=== PATIENT | male | born 1980 | race African-American/Black ===

== ENCOUNTER 2019-04-01 16:16 | Emergency (ER) | payer SELFPAY ==
--- NOTE | 2019-04-01 16:46 | ER Document Report ---
ED Medical Screen (RME) - General Chief Complaint: Cough Stated Complaint: SHORTNESS OF BREATH Time Seen by Provider: 04/01/19 16:39 Primary Care Provider: KYAW POLLOCK MD [Primary Care Provider] - Follow up as needed TRAVEL OUTSIDE OF THE [place] IN LAST 30 DAYS: No - HPI Notes: 04/01/19 16:44 Patient is a 39-year-old male no significant past medical history who presents complaining of shortness of breath, dyspnea on exertion, chest pain when he lays supine over the past 1 to 2 months. Patient states that he has had a dry cough for the past 4 months. Patient is also complaining of bilateral posterior calf pain over the last couple weeks. Denies drug allergies. He is not on any blood thinning medications. Denies any prolonged immobilization, distance travel, recent surgery/trauma, personal cancer history, hormone use, smoking, or previous DVT/PE. Denies HALL, fever, neck pain, URI, n/v/d, Abd pain, dysuria, back pain, or rash. I have treated and performed a rapid initial assessment of this patient. A comprehensive ED assessment and evaluation of the patient, analysis of test results and completion of medical decision making process will be conducted by additional ED providers. PHYSICAL EXAMINATION: GENERAL: Well-appearing, well-nourished and in no acute distress. A&Ox4. Answers questions appropriately. LUNGS: Breath sounds clear to auscultation bilaterally and equal. No wheezes rales or rhonchi. HEART: Regular rate and rhythm without murmurs, rubs, gallops. Extremities: No cyanosis, clubbing, or edema b/l. + tenderness popliteal areas b/l NEUROLOGICAL: Normal speech, normal gait. PSYCH: Normal mood, normal affect. - Related Data Allergies/Adverse Reactions: No Known Allergies Allergy (Unverified 04/01/19 16:21) Past Medical History - Immunizations Hx Diphtheria, Pertussis, Tetanus Vaccination: Yes Physical Exam - Vital signs Vitals: Temp Pulse Resp BP Pulse Ox 98.9 F 85 16 148/95 H 98 04/01/19 16:21 04/01/19 16:21 04/01/19 16:21 04/01/19 16:21 04/01/19 16:21 Course - Vital Signs Vital signs: Temp Pulse Resp BP Pulse Ox 98.9 F 85 16 148/95 H 98 04/01/19 16:21 04/01/19 16:21 04/01/19 16:21 04/01/19 16:21 04/01/19 16:21 Doctor's Discharge - Discharge Referrals: KYAW POLLOCK MD [Primary Care Provider] - Follow up as needed
--- NOTE | 2019-04-01 17:11 | RADIOLOGY REPORT (SQ) ---
EXAM DESCRIPTION: CHEST 2 VIEWS COMPLETED DATE/TIME: 04/01/2019 4:58 pm REASON FOR STUDY: cough COMPARISON: None. EXAM PARAMETERS: NUMBER OF VIEWS: two views TECHNIQUE: Digital Frontal and Lateral radiographic views of the chest acquired. RADIATION DOSE: NA LIMITATIONS: none FINDINGS: LUNGS AND PLEURA: No opacities, masses or pneumothorax. No pleural effusion. MEDIASTINUM AND HILAR STRUCTURES: Mild prominence in the right paratracheal region. HEART AND VASCULAR STRUCTURES: Heart normal size. No evidence for failure. BONES: Post surgical changes left glenohumeral joint. HARDWARE: None in the chest. OTHER: No other significant finding. IMPRESSION: 1. No acute pulmonary consolidation. 2. Mild prominence right paratracheal region. Further evaluation with CT chest with IV contrast sug gested. TECHNICAL DOCUMENTATION: JOB ID: [id number] [employer]- All Rights Reserved Reading location - IP/workstation name: [email or web address]
[2019-04-01 17:53] LABS: ABSOLUTE BASOPHILS # (AUTO) 0.1 10^3/uL (0.0-0.2); ABSOLUTE EOSINOPHILS # (AUTO) 0.1 10^3/uL (0.0-0.6); ABSOLUTE LYMPHOCYTES (AUTO) 1.7 10^3/uL (0.5-4.7); ABSOLUTE MONOCYTES (AUTO) 0.5 10^3/uL (0.1-1.4); ABSOLUTE NEUT (AUTO) 2.5 10^3/uL (1.7-8.2); BASOPHILS % (AUTO) 1.4 % (0-2); EOSINOPHILS % (AUTO) 2.7 % (0-6); HEMATOCRIT 45.4 % (37.9-51.0); HEMOGLOBIN 14.9 g/dL (13.5-17.0); MEAN CORPUSCULAR HEMOGLOBIN 29.3 pg (27.0-33.4); MEAN CORPUSCULAR HGB CONC 32.8 g/dL (32.0-36.0); MEAN CORPUSCULAR VOLUME 90 fl (80-97); PLATELET COUNT 266 10^3/uL (150-450); RED BLOOD COUNT 5.07 10^6/uL (4.35-5.55); RED CELL DISTRIBUTION WIDTH 13.2 % (11.5-14.0); SEGMENTED NEUTROPHILS % (AUTO) 50.9 % (42-78); TOTAL CELLS COUNTED % (AUTO) 100 %; WHITE BLOOD COUNT 4.9 10^3/uL (4.0-10.5)
[2019-04-01 18:08] LABS: ALBUMIN 4.9 g/dL (3.5-5.0); ALKALINE PHOSPHATASE 104 U/L (38-126); ANION GAP 11 (5-19); ASPARTATE AMINO TRANSFERASE 49 U/L (17-59); BILIRUBIN,DIRECT 0.5 mg/dL (0.0-0.4); BILIRUBIN,TOTAL 0.6 mg/dL (0.2-1.3); BLOOD UREA NITROGEN 16 mg/dL (7-20); CARBON DIOXIDE 29 mmol/L (22-30); CHLORIDE 97 mmol/L (98-107); GLUCOSE 94 mg/dL (75-110); POTASSIUM 4.9 mmol/L (3.6-5.0); TOTAL PROTEIN 8.6 g/dL (6.3-8.2)
[2019-04-01 18:20] LABS: NT PRO BNP 36 pg/mL (<125)
[2019-04-01 18:25] LABS: TROPONIN I < 0.012 ng/mL
--- NOTE | 2019-04-01 18:35 | EKG REPORT ---
SEVERITY:- BORDERLINE ECG - SINUS RHYTHM PROBABLE LEFT ATRIAL ABNORMALITY : Confirmed by: Asa Tesfaye MD 01-Apr-2019 18:34:37
--- NOTE | 2019-04-01 18:44 | ER Document Report ---
ED General - General Chief Complaint: Cough Stated Complaint: SHORTNESS OF BREATH Time Seen by Provider: 04/01/19 16:39 Primary Care Provider: KYAW POLLOCK MD [ACTIVE STAFF] - Follow up as needed Notes: 39-year-old healthy male presents the emergency department with shortness of breath, dyspnea on exertion, chest pain when laying supine x1 month that is gotten progressively worse over the last 2 weeks. Patient has had a dry cough for the past 4 months leading up to this. Patient is not a smoker. Also, patient complains of bilateral posterior calf pain is been going on for the last couple weeks. Not on anticoagulation, no prolonged immobilization, distance travel, recent surgery or trauma, personal cancer history, hormone use, or previous DVT. Patient denies any other symptoms, no recent illnesses, no fevers, no nausea/vomiting/diarrhea. No other complaints TRAVEL OUTSIDE OF THE [place] IN LAST 30 DAYS: No - Related Data Allergies/Adverse Reactions: No Known Allergies Allergy (Unverified 04/01/19 16:21) Past Medical History - Social History Smoking Status: Unknown if Ever Smoked Frequency of alcohol use: None Drug Abuse: None Family History: None Patient has suicidal ideation: No Patient has homicidal ideation: No Renal/ Medical History: Denies: Hx Peritoneal Dialysis - Immunizations Hx Diphtheria, Pertussis, Tetanus Vaccination: Yes Hx Pneumococcal Vaccination: 08/27/00 Review of Systems - Review of Systems Constitutional: See HPI EENT: No symptoms reported Cardiovascular: See HPI Respiratory: See HPI Gastrointestinal: See HPI Genitourinary: No symptoms reported Male Genitourinary: No symptoms reported Musculoskeletal: See HPI Skin: No symptoms reported Hematologic/Lymphatic: No symptoms reported Neurological/Psychological: No symptoms reported Physical Exam - Vital signs Vitals: Temp Pulse Resp BP Pulse Ox 98.9 F 85 16 148/95 H 98 04/01/19 16:21 04/01/19 16:21 04/01/19 16:21 04/01/19 16:21 04/01/19 16:21 - Notes Notes: PHYSICAL EXAMINATION: Reviewed vital signs and charting by RN GENERAL: Alert, interacts well. No acute distress. HEAD: Normocephalic, atraumatic. EYES: Pupils equal and round. Extraocular movements intact. ENT: Oral mucosa moist, tongue midline. NECK: Full range of motion. Trachea midline. LUNGS: Clear to auscultation bilaterally, no wheezes, rales, or rhonchi. No respiratory distress. HEART: Regular rate and rhythm. No murmur ABDOMEN: soft, non-tender. No distention. Bowel sounds present EXTREMITIES: Moves all 4 extremities spontaneously. No edema, No cyanosis. PSYCH: Normal affect, normal mood. SKIN: Warm, dry, normal turgor. No rashes or lesions noted. Course - Re-evaluation Re-evalutation: 04/01/19 18:43 Patient is well-appearing in no acute distress. Chest x-ray showed concern for some type of paratracheal prominence a chest CT with IV contrast has been ordered area also bilateral lower extremity Dopplers were ordered in triage. 04/01/19 20:50 Bilateral lower extremity Dopplers were unofficially read negative per the technologist. Chest CT with contrast done and is concerning for potential abnormality as there was a 23.5 mm mass with associated hilar lymphadenopathy. Upon further questioning patient's cousin is going to chemotherapy currently for lymphoma. Patient's lab work all within normal limits, no abnormalities . Plan at this time is to refer patient to pulmonary and hematology/oncology. Patient is currently stable for discharge. - Vital Signs Vital signs: Temp Pulse Resp BP Pulse Ox 98.9 F 85 21 H 146/107 H 99 04/01/19 16:21 04/01/19 16:21 04/01/19 20:00 04/01/19 20:00 04/01/19 20:01 - Laboratory Result Diagrams: 04/01/19 17:05 04/01/19 17:05 Laboratory results interpreted by me: 04/01/19 17:05 Chloride 97 L Direct Bilirubin 0.5 H Total Protein 8.6 H Discharge - Discharge Clinical Impression: Hilar adenopathy, Mass in chest Condition: Stable Disposition: HOME, SELF-CARE Additional Instructions: You were seen in the emergency department this evening for shortness of breath and dyspnea on exertion. After doing a CT of your chest it was discovered that there is some type of the nodule or mass that was discovered. You also have something called hilar adenopathy which is inflammation of the lymph nodes in your chest. Unclear if this is related to that nodule/mass or why you are having the inflammation. You are being referred to the net[employer] administrator who is on- call today and to our lumber puller/oncologist. Please call them first thing in the morning for further work-up. If you develop severe shortness of breath, get tightness in your throat and feel like your airway is closing off, get significant chest pain that is constant, or you have any other concerning symptoms please immediately return to the emergency department. Referrals: FAITH RAMOS MD [ACTIVE STAFF] - Follow up as needed KYAW POLLOCK MD [ACTIVE STAFF] - Follow up tomorrow BISHOP MORAES MD [ACTIVE STAFF] - Follow up tomorrow
--- NOTE | 2019-04-01 19:31 | RADIOLOGY REPORT (SQ) ---
EXAM DESCRIPTION: CT CHEST WITH COMPLETED DATE/TIME: 04/01/2019 7:11 pm REASON FOR STUDY: paratracheal prominence on CXR COMPARISON: None. TECHNIQUE: CT scan of the chest performed using helical scanning technique with dynamic intravenous contrast injection. Images reviewed with lung, soft tissue and bone windows. Reconstructed coronal and sagittal MPR and MIP images reviewed. All images stored on PACS. All CT scanners at this facility use dose modulation, iterative reconstruction, and/or weight based d osing when appropriate to reduce radiation dose to as low as reasonably achievable (ALARA). [facility]: Dose Right [facility]: CareDose [facility]: Dose Right [facility]: Teradose 4D [facility]: [employer] CONTRAST TYPE AND DOSE: contrast/concentration: Isovue 350.00 mg/ml; Total Contrast Delivered: 80.0 ml; Total Saline Delivered: 55.0 ml RENAL FUNCTION: BUN 16 creatinine 1.16 RADIATION DOSE: CT Rad equipment meets quality standard of care and radiation dose reduction techniq ues were employed. CTDIvol: 8.1 mGy. DLP: 331 mGy-cm. . LIMITATIONS: None. FINDINGS: LUNGS AND PLEURA: No opacities, nodules, masses. No pneumothorax. No effusions. HILAR AND MEDIASTINAL STRUCTURES: Mediastinal adenopathy. There is a node or mass in the pretracheal region on image 18 that measures 23.5 mm. Hilar adenopathy is present. subcarinal nodes are seen. HEART AND VASCULAR STRUCTURES: No aneurysm or dissection. No central pulmonary emboli. No pericardi al effusion. HARDWARE: None in the chest. UPPER ABDOMEN: The spleen is normal. There is no retroperitoneal adenopathy. THYROID AND OTHER SOFT TISSUES: No masses. No adenopathy. BONES: No significant finding. OTHER: No other significant finding. IMPRESSION: Mediastinal and hilar adenopathy. Concerning for lymphoma. The spleen is normal. No a denopathy is seen in the upper abdomen. TECHNICAL DOCUMENTATION: JOB ID: [id number] Quality ID # [id number]: Final reports with documentation of one or more dose reduction techniques (e.g., Au tomated exposure control, adjustment of the mA and/or kV according to patient size, use of iterative reconstruction technique) 2010 [employer]- All Rights Reserved Reading location - IP/workstation name: [email or web address]
[2019-04-01 20:44] VITALS: BP 146/107
--- NOTE | 2019-04-01 22:39 | RADIOLOGY REPORT (SQ) ---
US LOWER EXTREMITY VEINS EXAM DATE: 04/01/2019 4:44 PM CDT HISTORY: Leg pain and swelling. COMPARISON: None. TECHNIQUE: Vargas-scale, color Doppler and spectral Doppler images of the bilateral lower extremity veins were obtained. FINDINGS: RIGHT: The right common femoral, superficial femoral and popliteal veins are patent and compressible. Normal augmentation and color Doppler blood flow in the aforementioned veins. The visualized calf veins are also patent. LEFT: The left common femoral, superficial femoral and popliteal veins are patent and compressible. Normal augmentation and color Doppler blood flow in the aforementioned veins. The visualized calf veins are also patent. IMPRESSION: No evidence of deep venous thrombosis in the bilateral lower extremities.
--- NOTE | 2019-04-02 09:03 | EKG REPORT ---
SEVERITY:- BORDERLINE ECG - SINUS RHYTHM PROBABLE LEFT ATRIAL ABNORMALITY : Confirmed on behalf of: Asa Tesfaye MD 02-Apr-2019 09:02:26
== END 2019-04-01 21:11 | disposition home or self-care (01) ==
LOC: ER 16:16
DX: R59.0 Localized enlarged lymph nodes (principal); R22.2 Localized swelling, mass and lump, trunk; R05 Cough; R06.02 Shortness of breath; R06.00 Dyspnea, unspecified; M79.604 Pain in right leg; M79.605 Pain in left leg
CPT/HCPCS: 36415; 71046; 71260; 80053; 83880; 84484; 85025; 93005; 93010; 93970; 99285

== ENCOUNTER 2019-06-03 13:23 | Emergency (ER) | payer OTHER ==
--- NOTE | 2019-06-03 14:01 | ER Document Report ---
ED Medical Screen (RME) - General Chief Complaint: Productive Cough Stated Complaint: SPITTING BLOOD Time Seen by Provider: 06/03/19 13:49 Notes: Patient is a 39-year-old male who presents to the emergency department with a chief complaint of hemoptysis. He started coughing up blood this morning. He has been coughing for the past few days. Denies any fever. He was seen here in the emergency department in March and had a CT done that was concerning for lymphoma. They did a biopsy through Dr. Katz and was sent out to [facility]. [facility] and then referred him back to Dr. Katz. Exam: Clear breath sounds noted bilaterally. I have greeted and performed a rapid initial assessment of this patient. A comprehensive ED assessment and evaluation of the patient, analysis of test results and completion of medical decision making process will be conducted by an additional ED providers. TRAVEL OUTSIDE OF THE [place] IN LAST 30 DAYS: No - Related Data Allergies/Adverse Reactions: No Known Allergies Allergy (Verified 06/03/19 13:46) Past Medical History Renal/ Medical History: Denies: Hx Peritoneal Dialysis - Immunizations Hx Diphtheria, Pertussis, Tetanus Vaccination: Yes Physical Exam - Vital signs Vitals: Temp Pulse Resp BP Pulse Ox 99.1 F 103 H 16 134/77 H 98 06/03/19 13:28 06/03/19 13:28 06/03/19 13:28 06/03/19 13:28 06/03/19 13:28 Course - Vital Signs Vital signs: Temp Pulse Resp BP Pulse Ox 99.1 F 103 H 16 134/77 H 98 06/03/19 13:28 06/03/19 13:28 06/03/19 13:28 06/03/19 13:28 06/03/19 13:28
[2019-06-03 14:27] LABS: ABSOLUTE BASOPHILS # (AUTO) 0.1 10^3/uL (0.0-0.2); ABSOLUTE EOSINOPHILS # (AUTO) 0.2 10^3/uL (0.0-0.6); ABSOLUTE LYMPHOCYTES (AUTO) 1.1 10^3/uL (0.5-4.7); ABSOLUTE MONOCYTES (AUTO) 0.5 10^3/uL (0.1-1.4); ABSOLUTE NEUT (AUTO) 3.5 10^3/uL (1.7-8.2); BASOPHILS % (AUTO) 1.1 % (0-2); EOSINOPHILS % (AUTO) 3.4 % (0-6); HEMATOCRIT 42.5 % (37.9-51.0); HEMOGLOBIN 13.8 g/dL (13.5-17.0); LYMPHOCYTES % (AUTO) 19.7 % (13-45); MEAN CORPUSCULAR HEMOGLOBIN 28.4 pg (27.0-33.4); MEAN CORPUSCULAR HGB CONC 32.6 g/dL (32.0-36.0); MEAN CORPUSCULAR VOLUME 87 fl (80-97); PLATELET COUNT 348 10^3/uL (150-450); RED BLOOD COUNT 4.87 10^6/uL (4.35-5.55); RED CELL DISTRIBUTION WIDTH 13.7 % (11.5-14.0); SEGMENTED NEUTROPHILS % (AUTO) 65.8 % (42-78); TOTAL CELLS COUNTED % (AUTO) 100 %; WHITE BLOOD COUNT 5.4 10^3/uL (4.0-10.5)
--- NOTE | 2019-06-03 14:39 | RADIOLOGY REPORT (SQ) ---
EXAM DESCRIPTION: CHEST 2 VIEWS COMPLETED DATE/TIME: 06/03/2019 2:20 pm REASON FOR STUDY: cough COMPARISON: PA and lateral views of the chest from 04/01/2019. EXAM PARAMETERS: NUMBER OF VIEWS: two views TECHNIQUE: Digital Frontal and Lateral radiographic views of the chest acquired. RADIATION DOSE: NA LIMITATIONS: none FINDINGS: LUNGS AND PLEURA: No consolidation, pleural effusion or pneumothorax. MEDIASTINUM AND HILAR STRUCTURES: No mediastinal or hilar contour abnormality. HEART AND VASCULAR STRUCTURES: The cardiac silhouette and pulmonary vasculature are within normal poole its. BONES: No acute findings. HARDWARE: Findings of prior rotator cuff repair on the left. OTHER: No other finding. IMPRESSION: No acute cardiopulmonary process. TECHNICAL DOCUMENTATION: JOB ID: [id number] [employer]- All Rights Reserved Reading location - IP/workstation name: [email or web address]
[2019-06-03 14:50] LABS: ALBUMIN 4.2 g/dL (3.5-5.0); ALKALINE PHOSPHATASE 265 U/L (38-126); ANION GAP 10 (5-19); ASPARTATE AMINO TRANSFERASE 53 U/L (17-59); BILIRUBIN,DIRECT 0.1 mg/dL (0.0-0.4); BILIRUBIN,TOTAL 0.4 mg/dL (0.2-1.3); BLOOD UREA NITROGEN 11 mg/dL (7-20); CALCIUM 9.7 mg/dL (8.4-10.2); CARBON DIOXIDE 29 mmol/L (22-30); CHLORIDE 99 mmol/L (98-107); GLUCOSE 105 mg/dL (75-110); POTASSIUM 4.7 mmol/L (3.6-5.0); TOTAL PROTEIN 8.3 g/dL (6.3-8.2)
[2019-06-03 16:04] VITALS: BP 134/75
--- NOTE | 2019-06-03 16:22 | ER Document Report ---
ED Respiratory Problem - General Chief Complaint: Cough Stated Complaint: SPITTING BLOOD Time Seen by Provider: 06/03/19 13:49 Primary Care Provider: KYAW POLLOCK MD [Primary Care Provider] - Follow up tomorrow Mode of Arrival: Ambulatory Information source: Patient Notes: 39-year-old male presented to ED for complaint of spitting up some blood when he coughed this morning. He states he has been coughing for the past several days and had some blood this morning. He denies any fever. He states he was seen in March and had a CT and was concerning for lymphoma. He states he has had a biopsy since then with Dr. Katz and was told that the biopsy was negative. TRAVEL OUTSIDE OF THE [place] IN LAST 30 DAYS: No - HPI Patient complains to provider of: Cough - Hemoptysis Onset: This morning Duration: Gone now Initiating Event: URI Quality of pain: No pain Severity: None Pain Level: Denies Cough: Productive Sputum amount: Small Sputum color: [place] tinged Associated symptoms: Congestion, Cough, PND, Runny nose Similar symptoms previously: Yes Recently seen / treated by doctor: No - Related Data Allergies/Adverse Reactions: No Known Allergies Allergy (Verified 06/03/19 13:46) Past Medical History - General Information source: Patient - Social History Smoking Status: Never Smoker Frequency of alcohol use: Rare Drug Abuse: None Lives with: Family Family History: None Patient has suicidal ideation: No Patient has homicidal ideation: No - Past Medical History Cardiac Medical History: Reports: None Pulmonary Medical History: Reports: None EENT Medical History: Reports: None Neurological Medical History: Reports: None Endocrine Medical History: Reports: None Renal/ Medical History: Reports: None Malignancy Medical History: Reports None GI Medical History: Reports: None Musculoskeletal Medical History: Reports Hx Musculoskeletal Trauma Skin Medical History: Reports None Psychiatric Medical History: Reports: None Traumatic Medical History: Reports: None Infectious Medical History: Reports: None Past Surgical History: Reports: Other - Biopsy of the trach - Immunizations Hx Diphtheria, Pertussis, Tetanus Vaccination: Yes Hx Pneumococcal Vaccination: 08/27/00 Review of Systems - Review of Systems Constitutional: No symptoms reported EENT: No symptoms reported Cardiovascular: No symptoms reported Respiratory: Cough, Hemoptysis - Very minimal Gastrointestinal: No symptoms reported Genitourinary: No symptoms reported Male Genitourinary: No symptoms reported Musculoskeletal: No symptoms reported Skin: No symptoms reported Hematologic/Lymphatic: No symptoms reported Neurological/Psychological: No symptoms reported -: Yes All other systems reviewed and negative Physical Exam - Vital signs Vitals: Temp Pulse Resp BP Pulse Ox 99.1 F 103 H 16 134/77 H 98 06/03/19 13:28 06/03/19 13:28 06/03/19 13:28 06/03/19 13:28 06/03/19 13:28 Interpretation: Normal - General General appearance: Appears well, Alert - HEENT Head: Normocephalic, Atraumatic Eyes: Normal Pupils: PERRL - Respiratory Respiratory status: No respiratory distress Chest status: Nontender Breath sounds: Normal Chest palpation: Normal - Cardiovascular Rhythm: Regular Heart sounds: Normal auscultation Murmur: No - Abdominal Inspection: Normal Distension: No distension Bowel sounds: Normal Tenderness: Nontender Organomegaly: No organomegaly - Back Back: Normal, Nontender - Extremities General upper extremity: Normal inspection, Nontender, Normal color, Normal ROM, Normal temperature General lower extremity: Normal inspection, Nontender, Normal color, Normal ROM, Normal temperature, Normal weight bearing. No: Natasha's sign - Neurological Neuro grossly intact: Yes Cognition: Normal Orientation: AAOx4 [place] Coma Scale Eye Opening: Spontaneous [place] Coma Scale Verbal: Oriented [place] Coma Scale Motor: Obeys Commands [place] Coma Scale Total: 15 Speech: Normal Motor strength normal: LUE, RUE, LLE, RLE Sensory: Normal - Psychological Associated symptoms: Normal affect, Normal mood - Skin Skin Temperature: Warm Skin Moisture: Dry Skin Color: Normal Course - Re-evaluation Re-evalutation: 06/04/19 02:38 Patient's blood work was negative except for a positive alkaline phosphatase. Patient was instructed to please follow-up with Dr. Katz concerning this elevated alkaline phosphatase. Patient verbalized understanding and agreeable with plan before he was discharged. - Vital Signs Vital signs: Temp Pulse Resp BP Pulse Ox 98.7 F 86 18 134/75 H 100 06/03/19 15:57 06/03/19 15:57 06/03/19 15:57 06/03/19 15:57 06/03/19 15:57 - Laboratory Result Diagrams: 06/03/19 14:05 06/03/19 14:05 Laboratory results interpreted by me: 06/03/19 14:05 Alkaline Phosphatase 265 H Total Protein 8.3 H - Diagnostic Test Radiology reviewed: Image reviewed, Reports reviewed Discharge - Discharge Clinical Impression: cough small amt blood, Elevated alkaline phosphatase level Condition: Stable Disposition: HOME, SELF-CARE Additional Instructions: You was seen today for coughing up a small amount of blood. You states she had a biopsy of your trachea about a month ago and the results were negative. Your chest x-ray was negative. I have given you a copy of your CBC and chemistry. Your CBC is still within normal range but your alkaline [place] has gone from 140-265. It is very important that you follow-up with your primary care doctor and get this followed up promptly. Please call your primary care doctor today or in the morning and schedule a f ollow-up appointment. FOLLOW-UP CARE: If you have been referred to a physician for follow-up care, call the physicians office for an appointment as you were instructed or within the next two days. If you experience worsening or a significant change in your symptoms, notify the physician immediately or return to the Emergency Department at any time for re-evaluation. Referrals: KYAW POLLOCK MD [Primary Care Provider] - Follow up tomorrow
== END 2019-06-03 15:57 | disposition home or self-care (01) ==
LOC: ER 13:23
DX: R04.2 Hemoptysis (principal); R74.8 Abnormal levels of other serum enzymes; R09.82 Postnasal drip; R09.89 Other specified symptoms and signs involving the circulatory and respiratory systems
CPT/HCPCS: 36415; 71046; 80053; 85025; 99283

== ENCOUNTER → 2020-03-25 | Outpatient (CLI) | payer OTHER ==
--- NOTE | 2020-03-25 10:32 | ER RDC ASSESSMENT REPORT ---
Intake - In the Last 14 days Have you traveled outside [place]?: No Have you been in close contact with someone CONFIRMED: Yes Worked in Healthcare?: No - Symptoms Subjective Fever(Dora feverish): No Chills: No Muscule Aches: No Runny Nose: No Sore Throat: No Cough (New or worsening chronic cough): No Shortness of breath: No Nausea or Vomiting: No Headache: No Abdominal Pain: No Diarrhea(3 or more loose stools in last 24 hours): No - Do you have any of the following Chronic lung disease: Asthma or emphysema or COPD: No Cystic Fibrosis: No Diabetes: No High Blood Pressure: No Cardiovascular Disease: No Chronic Kidney Disease: No Chronic Liver Disease: No Chronic blood disorder like Sickle Cell Disease: No Weak immune system due to disease or medication: Yes Neurologic condition that limits movement: No Developmental delay - Moderate to Severe: No Morbid Obesity (>100 pounds over ideal weight): No - Objective Temperature: 96.4 F Pulse Rate: 72 Respiratory Rate: 10 Blood Pressure: 155/87 O2 Sat by Pulse Oximetry: 97 Objective: Given above, testing performed: covid Disposition: Home; Selfcare General - General Chief Complaint: Other Time Seen by Provider: 03/25/20 10:00 Mode of Arrival: Ambulatory Information source: Patient - [facility] Notes: Patient presents to clinic for COVID-19 testing after coming in close contact with another COVID 19 positive individual. Patient is asymptomatic. They deny any cough, shortness of breath, fever, chills, muscle aches, rhinorrhea, sore throat, nausea or vomiting, headache, abdominal pain or diarrhea. Patient has no acute medical concerns. - Related Data Allergies/Adverse Reactions: No Known Allergies Allergy (Verified 06/03/19 13:46) Past Medical History - General Information source: Patient - Social History Smoking Status: Never Smoker Family History: None - Medical History Notes: sarcoidosis - Past Medical History Cardiac Medical History: Reports: None Pulmonary Medical History: Reports: None EENT Medical History: Reports: None Neurological Medical History: Reports: None Endocrine Medical History: Reports: None Renal/ Medical History: Reports: None. Denies: Hx Peritoneal Dialysis Malignancy Medical History: Reports None GI Medical History: Reports: None Musculoskeletal Medical History: Reports Hx Musculoskeletal Trauma Skin Medical History: Reports None Psychiatric Medical History: Reports: None Traumatic Medical History: Reports: None Infectious Medical History: Reports: None Past Surgical History: Reports: Hx Orthopedic Surgery, Other - Biopsy of the trach Physical Exam - General General appearance: Appears well, Alert In distress: None Notes: PHYSICAL EXAMINATION: GENERAL: Well-appearing and in no acute distress. HEAD: Atraumatic, normocephalic. EYES: sclera anicteric, conjunctiva are normal. ENT: nares patent. Moist mucous membranes. NECK: Normal range of motion, supple without lymphadenopathy. LUNGS: No increased work of breathing. Lung sounds CTAB and equal. No wheezes rales or rhonchi. HEART: Regular rate and rhythm without murmurs. ABDOMEN: Soft, nontender, normal bowel sounds, no guarding. EXTREMITIES: Normal range of motion, no pitting edema. No cyanosis. NEUROLOGICAL: A&O x 3. Normal speech. PSYCH: Normal mood, normal affect. SKIN: Warm, Dry, normal turgor, no rashes or lesions noted Diagnostic Results Laboratory Results: COVID pending Patient Education/Counseling Counseling/Education: Patient presents for COVID 19 testing after close exposure to another person who has tested positive for COVID 19. Patient is asymptomatic at this time. Patient does not have emergency worrying symptoms such as difficulty breathing, shortness of breath, chest pain, pressure, confusion or cyanosis. Patient appears suitable for discharge as vital signs are stable and patient is nontoxic in appearance. Good return precautions have been discussed with patient, patient verbalized understanding and is agreeable with discharge plan of care at this time. Guidance for worsening S/SX: As a person under investigation for Covid 19, the [place] department of Health and Human Services, division of public health advises you to adhere to the following guidance until your test results are reported to you. If your test result is positive, you will receive additional information from your provider and your local health department at that time. Remain at home until you are cleared by the health provider or public health authorities. Keep a log of visitors to your home, notify any visitors to your home of your isolation status. If you plan to move to a new address or leave the county, notify the local health department in your County. Call your doctor or seek care if you have an urgent medical need. Before seeking medical care, call ahead to get instructions from the provider before arriving at the medical office clinic or hospital. Notify them that you are being tested for the virus that causes Covid 19 so that arrangements can be made, as necessary, to prevent transmission to others in the healthcare setting. Next, notify the local health department in your county. If a medical emergency arises and you need to call 911, inform the first responders that you are being tested for the virus that causes Covid 19. Next, notify the local health department in your county. RDC Discharge - Discharge Clinical Impression: Encounter for screening laboratory testing for COVID-19 virus in asymptomatic patient Condition: Good Disposition: Home; Selfcare
[2020-03-25 10:33] VITALS: BP 155/87
== END ==
LOC: RDC 09:11
PROVIDERS: ATTEND Registered Nurse
DX: Z20.828 Contact with and (suspected) exposure to other viral communicable diseases (principal)
CPT/HCPCS: 87635; C9803; 99201; 99211